=== PATIENT | male | born 1980 | race Caucasian/White ===

== ENCOUNTER 2017-12-09 17:57 | Emergency (ER) | payer BC ==
[2017-12-09 19:56] VITALS: BP 145/105
[2017-12-09] MEDS ORDERED: Amoxicillin/Clavulanate TAB* 875 MG PO ONE (20:46)
--- NOTE | 2017-12-09 20:51 | UC ---
UC General HPI - HPI Summary HPI Summary: pt c/o being sick for past 10 days. describes as sinus pain with congestion that is thick green. also c/o sore throat and bilateral ear pain. - History of Current Complaint Hx Obtained From: Patient, Family/[employer] Onset/Duration: Gradual Onset, Worse Since - onset Pain Intensity: 8 Aggravating: nothing Alleviating: nothing Associated Signs & Symptoms: Positive: Headache. Negative: Cough, Fever, SOB <Joyce Lacy - Last Filed: 12/09/17 20:52> <Ayana Jones - Last Filed: 12/10/17 06:57> - History of Current Complaint Chief Complaint: UCRespiratory Stated Complaint: SORE THROAT/NASAL CONGESTION Time Seen by Provider: 12/09/17 20:37 - Allergy/Home Medications Allergies/Adverse Reactions: Allergies Allergy/AdvReac Type Severity Reaction Status Date / Time No Known Allergies Allergy Verified 12/09/17 19:45 Home Medications: Home Medications D-Methorphan/PE/Acetaminophen [Theraflu Expressmax Cold-Cough] 1 liq PO PRN [History] PMH/Surg Hx/FS Hx/Imm Hx - Additional Past Medical History Additional PMH: Borderline htn-no tx. pcp observing Other History Of: Negative For: HIV, Hepatitis B, Hepatitis C, Anticoagulant Therapy - Surgical History Surgical History: Yes Surgery Procedure, Year, and Place: tonsillectomy; vasectomy - Family History Known Family History: Positive: Cardiac Disease, Hypertension - Social History Occupation: Employed Full-time Lives: With Family Alcohol Use: Rare Substance Use Type: None Smoking Status (MU): Never Smoked Tobacco - Immunization History Vaccination Up to Date: Yes <Joyce Lacy - Last Filed: 12/09/17 20:52> Review of Systems Constitutional: Negative Skin: Negative Eyes: Negative ENT: Sore Throat, Ear Ache, Nasal Discharge, Sinus Congestion, Sinus Pain/ Tenderness Respiratory: Negative Cardiovascular: Negative Gastrointestinal: Negative Genitourinary: Negative Motor: Negative Neurovascular: Negative Musculoskeletal: Negative Neurological: Negative Psychological: Negative Is Patient Immunocompromised?: No All Other Systems Reviewed And Are Negative: Yes <Joyce Lacy - Last Filed: 12/09/17 20:52> Physical Exam Triage Information Reviewed: Yes Appearance: Well-Appearing Vital Signs: Initial Vital Signs Temp 99.1 F 12/09/17 19:47 Pulse 90 12/09/17 19:47 Resp 16 12/09/17 19:47 BP 145/105 12/09/17 19:47 Pulse Ox 98 12/09/17 19:47 Vital Signs Reviewed: Yes Eye Exam: Normal ENT: Positive: Pharyngeal erythema, Nasal congestion, TM dull, Sinus tenderness , Uvula midline. Negative: Tonsillar swelling, Tonsillar exudate, Trismus, Muffled voice, Hoarse voice Neck: Positive: Supple, Nontender, Enlarged Nodes @ - mild peritonsilar adenopathy Respiratory: Positive: Lungs clear, Normal breath sounds, No respiratory distress Cardiovascular: Positive: RRR, No Murmur Abdomen Description: Positive: Nontender, No Organomegaly, Soft Bowel Sounds: Positive: Present Neurological: Positive: Alert Psychological: Positive: Normal Response To Family, Age Appropriate Behavior Skin Exam: Normal <Joyce Lacy - Last Filed: 12/09/17 20:52> Vital Signs: Initial Vital Signs Temp 99.1 F 12/09/17 19:47 Pulse 90 12/09/17 19:47 Resp 16 12/09/17 19:47 BP 145/105 12/09/17 19:47 Pulse Ox 98 12/09/17 19:47 <Ayana Jones - Last Filed: 12/10/17 06:57> Course/Dx - Course Course Of Treatment: exam c/w sinusitis, otalgia and pharyngitis. will tx with augmentin to cover sinuses which will give potential ear and throat coverage as well. BP elevated here, pt notes hx borderline htn being followed by pcp need for recheck on f/u stressed. - Differential Dx - Multi-Symptom Provider Diagnoses: sinusitis, otalgia, pharyngitis <Joyce Lacy - Last Filed: 12/09/17 20:52> Discharge <Joyce Lacy - Last Filed: 12/09/17 20:52> <Ayana Jones - Last Filed: 12/10/17 06:57> - Discharge Plan Condition: Stable Disposition: HOME Prescriptions: Amoxicillin/Clavulanate TAB* [Augmentin TAB 875*] 875 mg PO BID 10 Days #20 tab Patient Education Materials: Pharyngitis (ED), Sinusitis (ED), Earache (ED) Referrals: Mike CTO-C,Marbella Davalos [Primary Care Provider] - 5 Days Attestation Statement User Type: Provider - I was available for consult. This patient was seen by the MARIA L. The patient was not presented to, seen by, or examined by me. Noni <Ayana Jones - Last Filed: 12/10/17 06:57>
== END 2017-12-09 20:58 | disposition home or self-care (01) ==
LOC: UCCORT 17:57
DX: J32.9 Chronic sinusitis, unspecified (principal); H92.03 Otalgia, bilateral; J02.9 Acute pharyngitis, unspecified
CPT/HCPCS: 87651; 99212; A9270-GY; G0463

== ENCOUNTER 2018-05-23 19:50 | Emergency (ER) | payer BC ==
--- NOTE | 2018-05-23 19:58 | UC ---
Lower Extremity/Ankle HPI - HPI Summary HPI Summary: 37 y/o male presents to the urgent care c/o left ankle pain s/p twisting his ankle while hiking this morning around 1100AM today. Pt reports he had to continue walking for a mile after the injury. He applied ice and then heat at home, but pain has worsen specially w/ walking. Pain is 5/10 sharp w/ walking and mild swelling on lateral side. Pt denies numbness or tingling sensation gene the left foot or ankle, fever, calf pain, SOB, chest pain, abdominal pain, N/v/D. - History of Current Complaint Stated Complaint: ANKLE INJURY Time Seen by Provider: 05/23/18 19:55 Hx Obtained From: Patient Onset/Duration: Sudden Onset, Lasting Hours - 9 hrs, Still Present Severity Initially: Moderate Severity Currently: Moderate Pain Intensity: 6 Pain Scale Used: 0-10 Numeric Aggravating Factor(s): Ambulation Alleviating Factor(s): Rest, Elevation, Ice Able to Bear Weight: Yes - Risk Factors Gout Risk Factors: Negative DVT Risk Factors: Negative Septic Arthritis Risk Factor: Negative - Allergies/Home Medications Allergies/Adverse Reactions: Allergies Allergy/AdvReac Type Severity Reaction Status Date / Time No Known Allergies Allergy Verified 05/23/18 20:02 PMH/Surg Hx/FS Hx/Imm Hx Previously Healthy: Yes Respiratory History: Asthma Other History Of: Negative For: HIV, Hepatitis B, Hepatitis C, Anticoagulant Therapy - Surgical History Surgical History: Yes Surgery Procedure, Year, and Place: tonsillectomy; vasectomy - Family History Known Family History: Positive: Cardiac Disease, Hypertension - Social History Occupation: Employed Full-time Lives: With Family Alcohol Use: Rare Substance Use Type: None Smoking Status (MU): Never Smoked Tobacco - Immunization History Vaccination Up to Date: Yes Review of Systems Constitutional: Negative Skin: Other - left ankle swelling Eyes: Negative ENT: Negative Respiratory: Negative Cardiovascular: Negative Genitourinary: Negative Motor: Negative Neurovascular: Negative Musculoskeletal: Decreased ROM - left ankle, Other: - left ankle pain s/p injury Neurological: Negative Psychological: Negative Is Patient Immunocompromised?: No All Other Systems Reviewed And Are Negative: Yes Physical Exam - Summary Physical Exam Summary: Vital Signs Reviewed: Yes General: well developed, well nourished male, sitting in the examining table w/ o any apparent distress Eyes: Positive: Conjunctiva Clear - PERRLA, EOMI, ENT: Positive: Normal ENT inspection, Hearing grossly normal, Pharynx normal, TMs normal Neck: Positive: Supple, Nontender, No Lymphadenopathy Respiratory: Positive: Chest non-tender, Lungs clear, Normal breath sounds, No respiratory distress Cardiovascular: Positive: RRR, No Murmur, Pulses Normal, Brisk Capillary Refill Abdomen Description: Positive: Nontender, No Organomegaly, Soft. Negative: CVA Tenderness (R), CVA Tenderness (L) Bowel Sounds: Positive: Present Musculoskeletal: - Ankle: Pt is able to bear weight and ambulate w/ limping. The L ankle is without obvious asymmetry or deformity when compared to the R ankle. Decreased ROM due to pain. Moderate swelling at the lateral malleolus, with tenderness to palpation. No ecchymosis or bruising observed. Tenderness to palpation over the medial malleolus , no swelling observed. Talar tilt test is negative for ligament laxity to valgus or varus stress. Negative anterior drawer. Peroneal nerve is intact with strong eversion and plantar flexion. Positive sensation over the Rt foot and Rt ankle, positive pulses, capillary refill intact Neurological Exam: Normal Psychological Exam: Normal Skin: warm and dry Triage Information Reviewed: Yes Lower Extremity Course/Dx - Course Course Of Treatment: 37 y/o male presents to the urgent care c/o left ankle pain s/p twisting his ankle while hiking this morning around 1100AM today. Pt reports he had to continue walking for a mile after the injury. He applied ice and then heat at home, but pain has worsen specially w/ walking. Pain is 5/10 sharp w/ walking and mild swelling on lateral side. Pt denies numbness or tingling sensation gene the left foot or ankle, fever, calf pain, SOB, chest pain, abdominal pain, N/v/D. Hx obtained. Rt ankle X-ray ordered, Impression: Soft tissue swelling, no acute fracture. Dr Rome also read X-ray and he agreed w/ interpretation. Pt advised Radiologist final reading will be done tomorrow and he will be notified of any abdnormality. Pt most likely with a LF ankle Sprain. Pt immobilized with gel ankle splint, Kyle bandage and advised to avoid weight bearing w/ his crutches. Pt Rx Ibuprofen PO to decrease swelling and pain. Pt advised RICE, take Ibuprofen PO for pain and to f/u with PCP or orthopedic Dr Henry in 1 week if not improvement of symptoms for further treatment. Pt's BP is elevated today advised to decrease salt in diet, monitor BP and f/u with PCP for further management. Pt understood and agreed w/ plan of care and left the clinic ambulating w/ the help of crutches. - Differential Dx/Diagnosis Differential Diagnosis/HQI/PQRI: Fracture (Closed), Sprain, Strain, Tendonitis Provider Diagnoses: 1 Left ankle pain s/p injury. 2 Left ankle sprain. 3 Elevated BP w/o Hx of HTN Discharge - Sign-Out/Discharge Documenting (check all that apply): Patient Departure - D/C home - Discharge Plan Condition: Stable Disposition: HOME Prescriptions: Ibuprofen TAB* [Motrin TAB* 800 MG] 800 mg PO Q6H PRN #30 tab PRN Reason: Pain Patient Education Materials: Ankle Sprain (ED), Low-Sodium Diet (ED) Forms: *Work Release Referrals: Mike KESSLER-C,Marbella Davalos [Primary Care Provider] - 1 Week Brittany Henry MD [Medical Doctor] - 1 Week Additional Instructions: 1-Please take medications as directed to alleviate pain and swelling. 2-Please apply ice, keep your ankle immobilized with the splint. Avoid weight bearing using the crutches. Keep your ankle elevated and avoid standing for long periods of time. 3- Please f/u with Orthopedic Dr Henry or your PCP in 1 week is not improvement of symptoms for further evaluation and treatment. 4 Pt's BP is elevated today advised to decrease salt in diet, monitor BP and f/ u with PCP for further management. - Billing Disposition and Condition Condition: STABLE Disposition: Home
[2018-05-23 20:02] VITALS: BP 147/98
[2018-05-23] MEDS ORDERED: Ibuprofen TAB* 400 MG PO ONE (20:09)
--- NOTE | 2018-05-24 08:02 | RAD ---
Indication: Left ankle injury. 3 views of the left ankle demonstrates no fracture. No other bone or joint abnormality is noted. IMPRESSION: No fracture of the left ankle is noted. Soft tissue swelling is noted laterally. R0
== END 2018-05-23 20:45 | disposition home or self-care (01) ==
LOC: UCEAST 19:50
DX: S93.402A Sprain of unspecified ligament of left ankle, initial encounter (principal); X50.1XXA Overexertion from prolonged static or awkward postures, initial encounter; Y93.01 Activity, walking, marching and hiking; Y92.9 Unspecified place or not applicable; R03.0 Elevated blood-pressure reading, without diagnosis of hypertension
CPT/HCPCS: 99213; A9270-GY; G0463

== ENCOUNTER 2018-08-29 16:10 | Emergency (ER) | payer BC ==
--- OUTSIDE RECORDS SUMMARY | 2018-08-29 16:30 | XMS REPORT | Continuity of Care Document ---
:1980 External Reference #:[id number] Author Name Armin Hess MD Address [address] [place] [address] Care Team Providers Name Role Phone Kady Srinivasan MD Care Team Information Pharmacognosist Unavailable Marbella Mckeon, N.P. Primary Care Physician Unavailable Payers Type Date Identification Numbers Payment Provider Subscriber Policy Number: [id number] [employer] [facility] [place] [place] Group Number: [id number] [address] PayID: [id number] [place] [address] Advance Directives Description No Information Available Problems Date Description Provider Status Onset: 07/24/2017 Chronic rhinitis Armin Hess MD Active Onset: 07/24/2017 Chronic maxillary sinusitis Armin Hess MD Active Onset: 07/24/2017 Difficulty speaking Armin Hess MD Active Onset: 10/27/2017 Deviated nasal septum Armin Hess MD Active Onset: 10/27/2017 Hypertrophy of nasal turbinates Armin Hess MD Active Family History Date Family Member(s) Problem(s) Comments General Allergies General Asthma General Diabetes General Heart Disease General Thyroid Disease General Heart Attack Social History Type Date Description Comments Sex Unknown Occupation [employer] Tobacco Use Start: Unknown Never Smoked Cigarettes Tobacco Use Start: Unknown Never Smoked Cigars Tobacco Use Start: Unknown Never Smoked A Pipe Smokeless Tobacco Never Used Smokeless Tobacco ETOH Use Currently rarely consumes alcohol Allergies, Adverse Reactions, Alerts Description No Known Drug Allergies Medications Medication Date Status Form Strength Qnty SIG Indications Ordering Provider Prednisone 08/10/ Active Tablets 20mg 7tabs 20mg by J32.0 [facility] 2017 mouth one [place] per day in , MD in the morning [place] 08/06/ Active Tablets 5-325mg 20tabs 1 or 2 by [place] [address] mouth [place] every 4 , MD hours as needed Fluticasone / Active Suspension 50mcg/Act 2 sprays [place], Propionate 0000 in each Marbella, nostril N.P. everyday Claritin-D 24 00/ Active Tablets ER 10-240mg 1 by mouth [place], Hour 0000 24HR every day Marbella, N.P. Benadryl / Active Capsules 25mg 1 by mouth Self Allergy 0000 every 4 hours as needed allergies Mucinex / Active Tablets ER 600mg 1 by mouth Self 0000 12HR twice a day Immunizations Description No Information Available Vital Signs Date Vital Result Comment 08/10/2018 8:46am Weight 265.00 lb Weight 120.204 kg Height 69.50 inches 5'9.50" Height in cm's 176.5 cm BMI (Body Mass Index) 38.6 kg/m2 07/09/2018 11:39am Weight 265.00 lb Weight 120.204 kg Height 69.50 inches 5'9.50" Height in cm's 176.5 cm BMI (Body Mass Index) 38.6 kg/m2 10/27/2017 8:38am BP Systolic 152 mmHg BP Diastolic 101 mmHg Heart Rate 86 /min Respiratory Rate 17 /min Weight 265.00 lb Weight 120.204 kg Height 69.50 inches 5'9.50" Height in cm's 176.5 cm BMI (Body Mass Index) 38.6 kg/m2 08/14/2017 10:38am BP Systolic 160 mmHg BP Diastolic 110 mmHg Heart Rate 76 /min Respiratory Rate 18 /min Weight 265.00 lb Weight 120.204 kg Height 69.50 inches 5'9.50" Height in cm's 176.5 cm BMI (Body Mass Index) 38.6 kg/m2 07/24/2017 3:45pm BP Systolic 161 mmHg BP Diastolic 111 mmHg Heart Rate 84 /min Respiratory Rate 17 /min Weight 265.00 lb Weight 120.204 kg Height 69.50 inches 5'9.50" Height in cm's 176.5 cm BMI (Body Mass Index) 38.6 kg/m2 Results Description No Information Available Procedures Date Code Description Status 10/22/2017 25315 Prick Test Completed 09/03/2017 71596 No Show Fee Completed 07/24/2017 18594 Fiberoptic Laryngoscopy Completed Encounters Type Date Location Provider Dx Diagnosis Office Visit 07/09/2018 [place],After Arimn Hess J31.0 Chronic rhinitis 11:30a 10/20/07 J34.3 Hypertrophy of nasal turbinates J34.2 Deviated nasal septum J32.0 Chronic maxillary sinusitis Office Visit 10/27/2017 8:30a [place],After 10/20/07 Armin Hess J31.0 Chronic MD rhinitis J34.3 Hypertrophy of nasal turbinates J34.2 Deviated nasal septum Office Visit 08/14/2017 10:45a [place],After 10/20/07 Armin Hess J31.0 Chronic MD rhinitis R49.0 Dysphonia Office Visit 07/24/2017 3:30p [place],After 10/20/07 Armin Hess J31.0 Chronic MD rhinitis J32.0 Chronic maxillary sinusitis R49.0 Dysphonia Plan of Treatment 08/10/2018 - Armin Hess MDJ34.3 Hypertrophy of nasal [id number] Deviated nasal [id number] Chronic maxillary sinusitisNew Medication:Prednisone 20 mg - 20mg by mouth one per day in in the morning
[2018-08-29 16:50] VITALS: BP 161/81
--- NOTE | 2018-08-29 17:10 | UC ---
Throat Pain/Nasal Chirag HPI - HPI Summary HPI Summary: 38 yo patient with Sore throat and cough since night. On 08/05/18 had septoplasty- has some RIGHT-sided sinus pressure since procedure. Doing nasal saline rinse and taking ibuprofen prn as per ENT instructions but has started noticing a smell from his nose along with some chills and possible low grade fever. He started having nasal congestion, sore throat and URI symptoms 2 days ago - History of Current Complaint Chief Complaint: UCRespiratory Stated Complaint: SORE THROAT/NASAL CONGESTION Hx Obtained From: Patient Onset/Duration: Sudden Onset, Lasting Days Severity: Mild Pain Intensity: 3 Cough: Nonproductive - Allergies/Home Medications Allergies/Adverse Reactions: Allergies Allergy/AdvReac Type Severity Reaction Status Date / Time environmental Allergy Congestion Uncoded 08/29/18 16:46 PMH/Surg Hx/FS Hx/Imm Hx Previously Healthy: Yes Other History Of: Negative For: HIV, Hepatitis B, Hepatitis C, Anticoagulant Therapy - Surgical History Surgical History: Yes Surgery Procedure, Year, and Place: tonsillectomy. vasectomy. septoplasty - Family History Known Family History: Positive: Cardiac Disease, Hypertension - Social History Alcohol Use: None Alcohol Amount: 1-2 per month Substance Use Type: None Smoking Status (MU): Never Smoked Tobacco - Immunization History Vaccination Up to Date: Yes Review of Systems All Other Systems Reviewed And Are Negative: Yes Constitutional: Positive: Chills, Fatigue ENT: Positive: Sore Throat, Nasal Discharge, Sinus Congestion, Sinus Pain/ Tenderness Respiratory: Positive: Cough Physical Exam Triage Information Reviewed: Yes Appearance: Well-Appearing, Well-Nourished, Obese Vital Signs: Initial Vital Signs Temp 99 F 08/29/18 16:46 Pulse 90 08/29/18 16:46 Resp 15 08/29/18 16:46 BP 161/81 08/29/18 16:46 Pulse Ox 99 08/29/18 16:46 Vital Signs Reviewed: Yes Eyes: Positive: Conjunctiva Clear ENT: Positive: Hearing grossly normal, Pharynx normal, Nasal congestion, Nasal drainage, TMs normal, Uvula midline, Other - odor from nasal passage, right maxillary tenderness s/p right turbinectomy Neck: Positive: Supple, Nontender, No Lymphadenopathy Respiratory: Positive: Chest non-tender, Lungs clear, Normal breath sounds Cardiovascular: Positive: RRR, No Murmur, Pulses Normal, Brisk Capillary Refill Abdomen Description: Positive: Nontender Musculoskeletal Exam: Normal Neurological: Positive: Alert, Muscle Tone Normal Throat Pain/Nasal Course/Dx - Course Course Of Treatment: right maxillary sinusitis s/p septoplasty/turbinectomy, start augmentin as prescribed f/u with ENT in 2 days. Irrigation with normal saline - Differential Dx/Diagnosis Provider Diagnoses: sinusitis. elevated bp without diagnosis of HTN Discharge - Sign-Out/Discharge Documenting (check all that apply): Patient Departure All imaging exams completed and their final reports reviewed: No Studies - Discharge Plan Condition: Stable Disposition: HOME Patient Education Materials: Sinusitis (ED) Referrals: Mike GRIFFITH,Marbella Davalos [Primary Care Provider] - - Billing Disposition and Condition Condition: STABLE Disposition: Home
== END 2018-08-29 17:21 | disposition home or self-care (01) ==
LOC: UCCORT 16:10
DX: J32.9 Chronic sinusitis, unspecified (principal); R03.0 Elevated blood-pressure reading, without diagnosis of hypertension; Z98.890 Other specified postprocedural states
CPT/HCPCS: 99212; G0463